=== PATIENT | female | born 2000 | race Caucasian/White ===

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

== ENCOUNTER 2022-01-10 18:40 | Emergency (ER) | payer MEDICAID ==
[2022-01-10 18:46] VITALS: BP 122/76
[2022-01-10] MEDS ORDERED: AMOX/CLAV 875 MG/125 MG TABLET PO STA (19:02)
--- NOTE | 2022-01-10 19:06 | ED Physician Documentation ---
History of Present Illness - Stated complaint Stated Complaint: L EAR PX - Chief complaint Chief Complaint: Heent - History obtained from History obtained from: Patient - History of Present Illness Timing: How many weeks ago (1) Pain level max: 5 Pain level now: 5 - Additonal information Additional information: 21-year-old female presents to the emergency department left ear pain x1 week. Nothing makes it better or worse. No fevers. No congestion. No cough. No sore throat. Denies any possibility of . Has not taken anything for the pain. 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 HEENT: None Psych: None Musculoskeletal: None Derm: None - Past Surgical History Past Surgical History: No - Present Medications Home Medications: Ambulatory Orders Medication Instructions Recorded Confirmed Amox/Clav 875/125 [Augmentin] 1 tab PO Q12H #20 tablet 01/10/22 - Allergies Allergies/Adverse Reactions: Allergies Allergy/AdvReac Type Severity Reaction Status Date / Time No Known Drug Allergies Allergy Verified 01/10/22 18:43 - Social History Does the pt smoke?: No Smoking Status: Never smoker Does the pt drink ETOH?: No Does the pt have substance abuse?: No - Immunizations Immunizations are current?: Yes - POLST Patient has POLST: No PD ED PE NORMAL - Vitals Vital signs reviewed: Yes - General General: Alert and oriented X 3, No acute distress - HEENT HEENT: Moist mucous membranes, Other (R TM normal. L TM is erythematous, dull, bulging with loss of landmarks. Purulent fluid present.) - Neck Neck: Supple, no meningeal sign - Cardiac Cardiac: RRR - Respiratory Respiratory: No respiratory distress, Clear bilaterally - Derm Derm: Warm and dry - Neuro Neuro: Alert and oriented X 3 Results - Vitals Vitals: Vital Signs - 24 hr 01/10/22 18:43 Temperature 36.6 C Heart Rate 76 Respiratory 16 Rate Blood Pressure 122/76 O2 Saturation 100 Oxygen O2 Source Room air PD MEDICAL DECISION MAKING - ED course Complexity details: considered differential, d/w patient ED course: Patient with a left acute otitis media. Will place on antibiotics for home. We will have her follow-up with her doctor for further care. Patient counseled regarding signs and symptoms for which I believe and urgent re-evaluation would be necessary. Patient with good understanding of and agreement to plan and is comfortable going home at this time This document was made in part using voice recognition software. While efforts are made to proofread this document, sound alike and grammatical errors may occur. Departure - Departure Disposition: Home, Self Care Clinical Impression: Left otitis media Qualifiers: Otitis media type: suppurative Chronicity: acute Recurrence: non-recurrent Spontaneous tympanic membrane rupture: without spontaneous rupture Qualified Code(s): H66.002 - Acute suppurative otitis media without spontaneous rupture of ear drum, left ear Condition: Good Instructions: ED Otitis Media Acute Adult Follow-Up: your,doctor in 1 week [Other] Prescriptions: Amox/Clav 875/125 [Augmentin] 1 tab PO Q12H #20 tablet Comments: Your prescription was sent to [facility] in [place]. Please take all antibiotics until gone. You can use Motrin or Tylenol as needed for pain. Ret urn if you worsen.
== END 2022-01-10 19:14 | disposition home or self-care (01) ==
LOC: ED 18:40
DX: H66.002 Acute suppurative otitis media without spontaneous rupture of ear drum, left ear (principal)
CPT/HCPCS: 99282; 99283; A9270

== ENCOUNTER 2022-03-12 20:26 | Emergency (ER) | payer MEDICAID ==
[2022-03-12] MEDS ORDERED: AMOXICILLIN 250 MG CAPSULE PO STA (21:19)
--- NOTE | 2022-03-12 21:21 | ED Physician Documentation ---
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 Some cough. No body aches or fevers. Review of Systems Constitutional: denies: Fever, Chills Nose: reports: Rhinorrhea / runny nose, Congestion, Sinus pressure / pain Throat: denies: Sore throat Respiratory: reports: Cough. 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 : None HEENT: None Psych: None Musculoskeletal: None Derm: None - Past Surgical History Past Surgical History: No - Present Medications Home Medications: Ambulatory Orders Medication Instructions Recorded Confirmed Amox/Clav 875/125 [Augmentin] 1 tab PO Q12H #20 tablet 01/10/22 Amoxicillin 500 mg PO TID #30 cap 03/12/22 - Allergies Allergies/Adverse Reactions: Allergies Allergy/AdvReac Type Severity Reaction Status Date / Time No Known Drug Allergies Allergy Verified 03/12/22 20:38 - Social History Does the pt smoke?: No Smoking Status: Never smoker Does the pt drink ETOH?: No Does the pt have substance abuse?: No - Immunizations Immunizations are current?: Yes - POLST Patient has POLST: No PD ED PE NORMAL - Vitals Vital signs reviewed: Yes - General General: Alert and oriented X 3, No acute distress - HEENT HEENT: Pharynx benign, Other (Tender over the left maxillary sinus) - Neck Neck: Supple, no meningeal sign, No bony TTP - Cardiac Cardiac: RRR, No murmur - Respiratory Respiratory: No respiratory distress, Clear bilaterally - Abdomen Abdomen: Non tender - Back Back: No CVA TTP, No spinal TTP - Derm Derm: Normal color, Warm and dry - Extremities Extremities: No edema, No calf tenderness / cord - Neuro Neuro: Alert and oriented X 3, Normal speech Results - Vitals Vitals: Vital Signs - 24 hr 03/12/22 03/12/22 20:38 21:23 Temperature 37.2 C 37.2 C Heart Rate 100 89 Respiratory 16 16 Rate Blood Pressure 135/99 H 133/68 H O2 Saturation 98 99 Oxygen O2 Source Room air PD MEDICAL DECISION MAKING - ED course ED course: We discussed COVID testing but the patient declined feeling that her symptoms are not consistent. Departure - Departure Disposition: 01 Home, Self Care Clinical Impression: Sinusitis Condition: Good Record reviewed to determine appropriate education?: Yes Instructions: ED Sinusitis Abx Tx Prescriptions: Amoxicillin 500 mg PO TID #30 cap Comments: I sent your prescription electronically to [facility] in [place]. Return for new or worsening symptoms. Follow-up with your doctor in a week if not better. Discharge Date/Time: 03/12/22 21:27
[2022-03-12 21:24] VITALS: BP 133/68
== END 2022-03-12 21:27 | disposition home or self-care (01) ==
LOC: ED 20:26
DX: J32.9 Chronic sinusitis, unspecified (principal)
CPT/HCPCS: 99282; A9270